=== PATIENT | female | born 1980 ===

== ENCOUNTER 2018-12-31 21:03 | Emergency (ER) | payer OTHER ==
[~2018-12-31] VITALS: Ht 154.9 cm; Wt 47.6 kg
[~2018-12-31 21:03] MED LIST: PAXIL CR25 MG PO
[2018-12-31] MEDS ORDERED: XANAX0.25 MG (21:22)
[2018-12-31] MEDS ORDERED: LEVOCARNITINE330 MG (21:22)
[2018-12-31] MEDS ORDERED: CLEOCIN HCL300 MG PO (22:21)
== END 2018-12-31 22:26 | disposition home or self-care (01) ==
LOC: ER 21:03
DX: J34.0 Abscess, furuncle and carbuncle of nose (principal); I86.8 Varicose veins of other specified sites